=== PATIENT | female | born 1955 | race Caucasian/White ===

== ENCOUNTER 2019-02-15 17:10 | Emergency (ER) | payer OTHER ==
[~2019-02-15] VITALS: Ht 162.6 cm; Wt 62.6 kg
[2019-02-15] MEDS ORDERED: GABAPENTIN400 MG (17:29)
[2019-02-15] MEDS ORDERED: ZYRTEC10 M3 (17:29)
[2019-02-15] MEDS ORDERED: ALPRAZOLAM ODT2 MG (17:29)
[2019-02-15] MEDS ORDERED: PROAIR HFA8.5 GM (17:30)
== END 2019-02-15 20:31 | disposition home or self-care (01) ==
LOC: ER 17:10
DX: J45.901 Unspecified asthma with (acute) exacerbation (principal)